=== PATIENT | female | born 1985 | race African-American/Black ===

== ENCOUNTER 2017-03-16 07:02 | Day surgery (SDC) | payer OTHER ==
[~2017-03-16] VITALS: Ht 162.6 cm; Wt 74.4 kg
[~2017-03-16 07:02] MED LIST: CLINDAMYCIN 900MG PREMIX 50 ML IV ONE; HYDROmorphone 2 MG/ML VIAL IV PRN; IV RINGERS,LACTATED 1000ML 1,000 ML IV SCH; LIDOCAINE 1% PF 2 ML VIAL. ID PRN; MORPHINE SULFATE 2 MG/ML DISP.SYRIN. IV PRN; ONDANSETRON PF 4 MG/2 ML VIAL. IV PRN; PROCHLORPERAZINE 10 MG/2 ML VIAL. IV PRN; fentaNYL PF VIAL 100 MCG/2 ML VIAL IV PRN
[2017-03-16 08:13] LABS: NEG OBC UR NEG; POS OBC UR POS
[2017-03-16] MEDS ORDERED: PROPOFOL 20 ML IV ONE (08:14)
[2017-03-16] MEDS ORDERED: LIDOCAINE 2% PF Vial for OR 5 ML VIAL. ONE (08:14)
[2017-03-16] MEDS ORDERED: ONDANSETRON PF 4 MG/2 ML VIAL. ONE (08:16)
[2017-03-16] MEDS ORDERED: DEXAMETHASONE SOD PHOS 20 MG/5 ML VIAL. ONE (08:16)
[2017-03-16] MEDS ORDERED: MIDAZOLAM HCL/PF 2 MG/2 ML VIAL. ONE (08:26)
[2017-03-16] MEDS ORDERED: SEVOFLURANE 16 TO 30 MINUTES. IH ONE (08:59)
--- NOTE | 2017-03-16 09:07 | DISCH ---
DISCHARGE INSTRUCTIONS Condition on Discharge Condition on Discharge: Stable Activity After Discharge Activity Instructions for Disc: Activity as tolerated Lifting Instructions after Dis: No heavy lifting Driving Instructions after Dis: Do not drive today Diet after Discharge Diet after Discharge: Regular Contacting the DREnid after DC Call your doctor for: Concerns you may have Follow-Up Follow up with: Dr. Arriaga in 1 week. CARLYN ARRIAGA Jr, MD Mar 16, 2017 09:07
--- NOTE | 2017-03-16 09:07 | PDOC ---
BRIEF OPERATIVE NOTE Pre-Op Diagnosis AUB Post-Op Diagnosis Same + Endometrial Polyp Procedure Performed Op [facility] [place] Arriaga Anesthesia Type: General Blood Loss Less than 5 ml Specimens Obtained endometrial polyps Findings enlarged uterus with endometrial polyps Complications none CARLYN ARRIAGA Jr, MD Mar 16, 2017 09:07
[2017-03-16] MEDS ORDERED: IBUP-1060 PO (09:30)
--- NOTE | 2017-03-16 09:30 | OP ---
DATE OF SURGERY: 03/16/2017 DATE OF SERVICE: 03/16/2017 PREOPERATIVE DIAGNOSIS: Abnormal uterine bleeding. POSTOPERATIVE DIAGNOSIS: Abnormal uterine bleeding, plus endometrial polyps. PROCEDURE: Operative hysteroscopy. SURGEON: Carlyn Arriaga MD ANESTHESIA: LMA. ESTIMATED BLOOD LOSS: Less than 5 mL. COMPLICATIONS: None. FINDINGS: Enlarged uterus with thickened endometrial polyps. Bilateral fallopian tube ostia appeared normal and patent. SUMMARY: A 31-year-old female with abnormal uterine bleeding, who presented for operative hysteroscopy. The patient had Endosee procedure in the office, which indicated endometrial polyps. The patient was counseled on operative hysteroscopy for polypectomy, risks, benefits and expectations, and voiced clear understanding to proceed. DESCRIPTION OF PROCEDURE: The patient was taken to surgery suite and placed in dorsal lithotomy position. She was prepped with Betadine solution for vaginal prep and draped in sterile fashion. After adequate anesthesia, weighted speculum and curved Alessandra were placed vaginally. The anterior lip of the cervix grasped with a single tooth tenaculum. Cervix dilated with Thu dilators up to size 7. The TruClear hysteroscope was positioned and placed. There were multiple endometrial polyps which were removed with the TruClear device until a homogenous endometrial lining was visualized. The fallopian tube ostia appeared normal and patent bilaterally. The hysteroscope was then removed. Single tooth tenaculum and weighted speculum were removed. The patient tolerated the procedure well and was taken to recovery room in stable condition. Sponge and needle count correct x 3. CARLYN ARRIAGA MD DR: DWAINE/ozzie JOB#: [id number] / [id number]
[2017-03-16] MEDS ORDERED: fentaNYL PF VIAL 100 MCG/2 ML VIAL ONE (10:02)
[2017-03-16] MEDS ORDERED: IBUPROFEN 200 MG TABLET. PO ONE ×3 (11:17→11:30)
[2017-03-16 12:03] VITALS: BP 113/65
--- NOTE | 2017-03-17 16:48 | PATHOLOGY ---
PATHOLOGY REPORT * * * * * * * * FINAL DIAGNOSIS: Endometrial curettings: - Polypoid disordered proliferative endometrium. COMMENT: There is no atypia or evidence of malignancy. (JPM:mml; 03/17/2017) REPORT ELECTRONICALLY SIGNED BY: Darrell Reynolds M.D. DATE/TIME: 03/17/2017 16:48 * * * * * * * * GROSS PATHOLOGY: Received in formalin labeled "Malika Valladares, endometrial polyps," are several segments of red-vasquez membranous tissue admixed with mucoid material measuring 2.9 x 1.6 x 0.5 cm in aggregate dimensions. The specimen is submitted entirely in cassette A1. (TSD; 03/16/2017) INITIAL CPT CODE(S): A; 72955 Professional services performed [place] [facility] [place] [address] Technical services performed by [facility] at [address] [place] [address]. SPECIMEN(S) RECEIVED: A.Endometrial polyp CLINICAL HISTORY: Abnormal uterine bleeding PATIENT: MALIKA VALLADARES Coleen /AGE: 509/21/1985 (Age: 31) PATIENT #: [id number] ALT CASE #: SPECIMEN COLLECTION DATE: 03/16/2017 SPECIMEN RECEIVED DATE: 03/16/2017 [facility] - [address] [place] [address] - PHONE: [phone] * * * END OF REPORT * * *
== END 2017-03-16 12:14 | disposition home or self-care (01) ==
LOC: SURG 07:02
PROVIDERS: ATTEND Obstetrics & Gynecology
DX: N84.0 Polyp of corpus uteri (principal); Z88.6 Allergy status to analgesic agent; Z88.0 Allergy status to penicillin
CPT/HCPCS: 58558; 81025; J1100; J2250; J2405; J2704; J3010; J3490; J2001